=== PATIENT | male | born 2005 | race Hispanic/Latino ===

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

== ENCOUNTER 2023-06-06 08:57 | Emergency (ER) | payer SELFPAY ==
[2023-06-06 09:50] LABS: Hemoglobin 13.2 g/dL (14.0-18.0); Mean Corpuscular HGB CONC 33.5 g/dL (32.0-36.0); Mean Corpuscular Hemoglobin 30.8 pg (25.0-35.0); Mean Corpuscular Volume 91.9 fl (78.0-98.0); Mean Platelet Volume 8.7 fL (7.4-10.4); Platelet Count 234 10x3/uL (130-400); White Blood Cell (WBC) Count 8.3 10x3/uL (4.8-10.8)
[2023-06-06] MEDS ORDERED: Prochlorperazine 10 MG/2 ML VIAL ONE (09:56)
[2023-06-06] MEDS ORDERED: Famotidine/PF 20 mg/2ml Vial ONE (09:56)
[2023-06-06] MEDS ORDERED: diphenhydrAMINE 50 MG/ML VIAL ONE (09:56)
[2023-06-06] MEDS ORDERED: Dicyclomine 10 MG CAP ONE (09:56)
[2023-06-06] MEDS ORDERED: Ketorolac Tromethamine 30 MG/ML VIAL ONE (09:56)
[2023-06-06 10:01] LABS: Band 6 % (5-11); Lymphocytes 25 % (28-48); MDiff Complete? YES; Manual Diff?? YES; Monocytes 7 % (0-4); Neutrophil 62 % (31-61)
[2023-06-06 10:02] LABS: Platelet Adequacy Comment Appears Adequate; RBC Morph Comment Within Normal Limits
[2023-06-06 10:05] LABS: ALT (SGPT) 60 U/L (8-55); AST (SGOT) 122 U/L (10-45); Albumin 4.5 g/dL (3.5-5.0); Alkaline Phosphatase 75 U/L (50-130); Anion Gap 15 mmol/L (10-20); BUN (Urea Nitrogen) 13 mg/dL (8.4-21.0); CK (CPK) 1395 U/L (30-200); Calc. Creatinine Clearance 0 mL/min (70-130); Calcium 9.3 mg/dL (7.8-10.44); Carbon Dioxide 24 mmol/L (22-29); Chloride 104 mmol/L (98-107); Estimated GFR 111; Globulin 2.8 g/dL (2.4-3.5); Glucose 97 mg/dL (70-105); Lipase 33 U/L (8-78); Potassium 4.2 mmol/L (3.5-5.1); Protein, Total 7.3 g/dL (6.0-8.3); Sodium 139 mmol/L (136-145)
[2023-06-06] MEDS ORDERED: Lactated Ringer's 1,000 ML ONE ×2 (10:25→12:48)
[2023-06-06] MEDS ORDERED: Aspirin Chewable 81 MG TAB ONE (10:29)
[2023-06-06 10:36] LABS: CKMB 60.2 ng/mL (0-6.6)
[2023-06-06] MEDS ORDERED: Colchicine 0.6 MG TAB ONE (10:40)
[2023-06-06 11:03] LABS: SARS-CoV-2 NAA Rapid Test Not Detected (NotDetected)
== END 2023-06-06 14:01 | disposition short-term general hospital (02) ==
LOC: MADERS 08:57
DX: I21.4 Non-ST elevation (NSTEMI) myocardial infarction (principal); E86.0 Dehydration; I31.9 Disease of pericardium, unspecified; R74.01 Elevation of levels of liver transaminase levels; I10 Essential (primary) hypertension; Z20.822 Contact with and (suspected) exposure to COVID-19
CPT/HCPCS: 36415; 71046; 80053; 82550; 82553; 83605; 83690; 83735; 83880; 84484; 85025; 93005; 94760; 96361; 96374; 96375; J0780; J1200; J1885; J7120; S0028